=== PATIENT | female | born 1995 | race Caucasian/White ===

== ENCOUNTER 2016-10-15 20:10 | Emergency (ER) | payer BC, OTHER ==
[~2016-10-15] VITALS: Ht 152.4 cm; Wt 77.1 kg
[~2016-10-15 20:10] MED LIST: BIRTHCONTROL PO; CEPH500C PO; CETI10TA17; CYCL5TAB PO; IBP600T1 PO; METR500T PO; MNTL10T; NAPR500T3 PO; NITR-65 PO; OXYC-12 PO; TRAM50TA2 PO
--- NOTE | 2016-10-15 21:27 | ED Integumentary General ---
General Chief Complaint: Allergic Reaction Stated Complaint: RASH Nursing Triage Note: PT TO ED 7 W/ C/O PATCHY AREAS OF IRRITATION ONSET X5 DAYS. REPORTS SHE DOESN' T HAVE TIME TO SEE "A REAL DOCTOR" SO SHE CAME HERE FOR EVAL. DENIES PAIN, DOES C/O ITCHING History of Present Illness Time seen by provider: 21:15 Initial Comments Pruritic rash to arms, stomach, legs and back, unknown cause. Has not been outside much. Has one dog, current on flea medicine and hasn't seen bugs on him. Timing/Duration: week, getting worse Severity: mild Location: torso, extremities Possible Cause: no cause identified Modifying Factors: improves with scratching, improves with other ( hydrocortisone cream) Associated Symptoms: denies symptoms Allergies and Home Medications Allergies Coded Allergies: Penicillins (Unverified Allergy, Mild, 06/28/09) Uncoded Allergies: CODEIN (Allergy, Unknown, 07/07/11) Home Medications Naproxen 500 Mg Tablet, 500 MG PO BID, #20 Prescribed by: KIERRA STEVENSON on 01/23/16 1754 Nitrofurantoin Monohyd/M-Cryst 100 Mg Capsule, 100 MG PO BID, #20 Prescribed by: KIERRA STEVENSON on 01/23/16 1754 Prednisone 20 Mg Tab, 40 MG PO DAILY for 5 Days, #10 Prescribed by: AMEENA VELÁZQUEZ on 10/15/168 Constitutional: no symptoms reported, see HPI Skin: pruritus, rash All Other Systems Reviewed Negative Unless Noted: Yes Past Rzvaotd-Ztryxe-Hdphxm Hx Patient Social History Alcohol Use: Occasionally Uses Recreational Drug Use: No Smoking Status: Never a Smoker Recent Foreign Travel: No Contact w/Someone Who Travel: No Recent Infectious Disease Expo: No Recent Hopitalizations: No Immunizations Up To Date Tetanus Booster (TDap): Less than 5yrs PED Vaccines UTD: Yes Date of Influenza Vaccine: Jan 08, 2012 Seasonal Allergies Seasonal Allergies: No Surgeries HX Surgeries: Yes (RIGHT SHOULDER, RIGHT OVARIAN CYST REMOVAL) Surgeries: Orthopedic Respiratory Hx Respiratory Disorders: No Cardiovascular Hx Cardiac Disorders: No Neurological Hx Neurological Disorders: No Reproductive System Hx Reproductive Disorders: No Female Reproductive Disorders: Ovarian Cyst Genitourinary Hx Genitourinary Disorders: No Gastrointestinal Hx Gastrointestinal Disorders: No Musculoskeletal Hx Musculoskeletal Disorders: No Endocrine Hx Endocrine Disorders: No HEENT HX ENT Disorders: No Cancer Hx Cancer: No Psychosocial Hx Psychiatric Problems: No Integumentary HX Skin/Integumentary Disorder: No Blood Transfusions Hx Blood Disorders: No Adverse Reaction to a Blood Tr: No Reviewed Nursing Assessment Reviewed/Agree w Nursing PMH: Yes Physical Exam Vital Signs Vital Sign - Last 12Hours 10/15/16 20:46 Temp 99.7 Pulse 72 Resp 20 B/P (MAP) 116/66 Pulse Ox 99 O2 Delivery Room Air Capillary Refill : Less Than 3 Seconds General Appearance: WD/WN, no apparent distress HEENT: PERRL/EOMI, normal ENT inspection, TMs normal, pharynx normal Neck: non-tender, full range of motion, normal inspection, No lymphadenopathy ( R), No lymphadenopathy (L) Cardiovascular: normal peripheral pulses, regular rate, rhythm, no murmur Respiratory: chest non-tender, lungs clear Extremities: normal range of motion, non-tender, normal inspection, normal capillary refill Neurologic/Psychiatric: no motor/sensory deficits, alert, normal mood/affect, oriented x 3 Skin: normal color, warm/dry Skin Problem Location: upper extremities, torso, lower extremities Skin Problem Character: macules, papules Lymphatic: no adenopathy Laceration Repair : Suture Size: 4-0 Progress/Results/Core Measures Results/Orders My Orders Orders - AMEENA VELÁZQUEZ Prednisone Tablet (Deltasone Tablet) (10/15/16 21:30) Diphenhydramine Tablet (Benadryl Tablet) (10/15/16 21:30) Medications Given in ED Current Medications Medications Dose Ordered Sig/Seven Route Start Time Stop Time Status Last Admin Dose Admin Diphenhydramine HCl 25 mg ONCE ONCE PO 10/15/16 21:30 10/15/16 21:31 DC 10/15/16 21:29 25 MG Prednisone 20 mg ONCE ONCE PO 10/15/16 21:30 10/15/16 21:31 DC 10/15/16 21:29 20 MG Vital Signs/I&O Vital Sign - Last 12Hours 10/15/16 20:46 Temp 99.7 Pulse 72 Resp 20 B/P (MAP) 116/66 Pulse Ox 99 O2 Delivery Room Air Blood Pressure Mean: 83 Departure Impression Impression: Primary Impression: Contact dermatitis Qualified Codes: L25.9 - Unspecified contact dermatitis, unspecified cause Additional Impression: Insect bite Qualified Codes: W57.XXXA - Bitten or stung by nonvenomous insect and other nonvenomous arthropods, initial encounter Disposition: 01 HOME, SELF-CARE Condition: Stable Departure-Patient Inst. Decision time for Depature: 21:20 Referrals: NO,LOCAL PHYSICIAN (PCP/Family) Primary Care Physician Patient Instructions: Skin Rash (DC) Add. Discharge Instructions: Keep area clean and dry with soap and water. Apply cortisone cream 3-4 times daily. Take Benadryl 25 mg at bedtime. Take prednisone as ordered Return to emergency department for signs of infection to the rash (increased redness, discolored drainage, warmth), fevers, changes in rash or new problems. All discharge instructions reviewed with patient and/or family. Voiced understanding. Scripts Prednisone (Prednisone) 20 Mg Tab 40 MG PO DAILY for 5 Days, #10 TAB Prov: AMEENA VELÁZQUEZ 10/15/16 AMEENA VELÁZQUEZ Oct 15, 2016 21:27
[2016-10-15] MEDS ORDERED: PRD20T PO (21:28)
[2016-10-15] MEDS ORDERED: diphenhydrAMINE 25 MG TAB (BENADRYL) PO ONE (21:30)
[2016-10-15] MEDS ORDERED: predniSONE 20 MG TAB PO ONE (21:30)
[2016-10-15 21:31] VITALS: BP 0/0
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
== END 2016-10-15 21:31 | disposition home or self-care (01) ==
LOC: EDUNIT# 20:10 → ER 20:11
DX: S40.861A Insect bite (nonvenomous) of right upper arm, initial encounter (principal); S40.862A Insect bite (nonvenomous) of left upper arm, initial encounter; S80.861A Insect bite (nonvenomous), right lower leg, initial encounter; S80.862A Insect bite (nonvenomous), left lower leg, initial encounter; S30.861A Insect bite (nonvenomous) of abdominal wall, initial encounter; S20.469A Insect bite (nonvenomous) of unspecified back wall of thorax, initial encounter; L25.9 Unspecified contact dermatitis, unspecified cause; Z87.42 Personal history of other diseases of the female genital tract; W57.XXXA Bitten or stung by nonvenomous insect and other nonvenomous arthropods, initial encounter
CPT/HCPCS: 99283

== ENCOUNTER 2017-07-30 21:31 | Emergency (ER) | payer BC, OTHER ==
[~2017-07-30] VITALS: Ht 152.4 cm; Wt 79.4 kg
[~2017-07-30 21:31] MED LIST changes: +NAPR-915 PO; -NAPR500T3 PO; +PRD20T PO
--- OUTSIDE RECORDS SUMMARY | 2017-07-30 21:36 | XMS REPORT ---
Author Author GUS SHETH [facility] Address [address] [place] [address] Care Team Providers Care Shoe Repair Cobbler Name Role Phone GUS SHETH Unavailable PROBLEMS Unknown Problems ALLERGIES Substance Reaction Event Type Date Status Penicillin V Potassium Unknown Drug Allergy Apr, Active Codeine Phosphate Unknown Drug Allergy Apr, Active SOCIAL HISTORY No smoking Hx information available PLAN OF CARE VITAL SIGNS Height 65.0 in 2016-04-23 Weight 190.6 lbs 2016-04-23 Temperature 98.4 degrees Fahrenheit 2016-04-23 Heart Rate 72 bpm 2016-04-23 Respiratory Rate 20 2016-04-23 BMI 31.71 kg/m2 2016-04-23 Blood pressure systolic 111 mmHg 2016-04-23 Blood pressure diastolic 77 mmHg 2016-04-23 MEDICATIONS Medication Instructions Dosage Frequency Start Date End Date Duration Status Tramadol HCl 50 mg Orally every 4 hrs 1 tablet as needed 4h Apr, Active Bactrim DS 800-160 MG Orally Twice a day 1 tablet 12h Apr,Apr 10 day(s) Active RESULTS No Results PROCEDURES Procedure Date Ordered Related Diagnosis Body Site NAIL REMOVAL PERMANENT (PARTIAL OR COMPLETE) 2016-04-23 N/A REMOVAL OF NAIL BED Apr 23, 2016 Office Visit, Est Pt., Level 2 Apr 23, 2016 IMMUNIZATIONS No Known Immunizations
--- OUTSIDE RECORDS SUMMARY | 2017-07-30 21:36 | XMS REPORT ---
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 Machine Operator Name Role Phone GUS SHETH Unavailable PROBLEMS Unknown Problems ALLERGIES Substance Reaction Event Type Date Status Penicillin V Potassium Unknown Drug Allergy Apr, Active Codeine Phosphate Unknown Drug Allergy Apr, Active SOCIAL HISTORY No smoking Hx information available PLAN OF CARE VITAL SIGNS Weight 191.7 lbs 2016-04-19 Temperature 97.8 degrees Fahrenheit 2016-04-19 Heart Rate 68 bpm 2016-04-19 Respiratory Rate 16 2016-04-19 Blood pressure systolic 120 mmHg 2016-04-19 Blood pressure diastolic 78 mmHg 2016-04-19 MEDICATIONS Medication Instructions Dosage Frequency Start Date End Date Duration Status Bactrim DS 800-160 MG Orally Twice a day 1 tablet 12h Apr,Apr 10 day(s) Active RESULTS No Results PROCEDURES Procedure Date Ordered Related Diagnosis Body Site Office Visit, Est Pt., Level 3 Apr 19, 2016 IMMUNIZATIONS No Known Immunizations
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
[2017-07-30] MEDS ORDERED: KETOROLAC 30 MG/ML VIAL IVP ONE (22:00)
[2017-07-30 22:05] LABS: BASOPHILS % (AUTO) 0 % (0-10); EOSINOPHILS # (AUTO) 0.2 10^3/uL (0.0-0.3); EOSINOPHILS % (AUTO) 2 % (0-10); HEMATOCRIT 37 % (35-52); HEMOGLOBIN 12.9 G/DL (11.5-16.0); LYMPHOCYTES # (AUTO) 2.7 X 10^3 (1.0-4.0); LYMPHOCYTES % (AUTO) 27 % (12-44); MEAN CORPUSCULAR HEMOGLOBIN 31 PG (25-34); MEAN CORPUSCULAR HGB CONC 35 G/DL (32-36); MEAN CORPUSCULAR VOLUME 89 FL (80-99); MEAN PLATELET VOLUME 10.2 FL (7.4-10.4); MONOCYTES # (AUTO) 0.8 X 10^3 (0.0-1.0); MONOCYTES % (AUTO) 8 % (0-12); NEUTROPHILS # (AUTO) 6.3 X 10^3 (1.8-7.8); NEUTROPHILS % (AUTO) 63 % (42-75); PLATELET COUNT 353 10^3/uL (130-400); RED BLOOD COUNT 4.14 10^6/uL (4.35-5.85); RED CELL DISTRIBUTION WIDTH 12.5 % (10.0-14.5)
[2017-07-30 22:09] LABS: BILIRUBIN,URINE NEGATIVE (NEGATIVE); CLARITY,URINE CLEAR; COLOR,URINE YELLOW; GLUCOSE, URINE (UA) NEGATIVE (NEGATIVE); KETONES,URINE NEGATIVE (NEGATIVE); LEUKOCYTE ESTERASE ,URINE 1+ (NEGATIVE); NITRITE,URINE NEGATIVE (NEGATIVE); PH,URINE 6 (5-9); PROTEIN,URINE NEGATIVE (NEGATIVE); UROBILINOGEN,URINE NORMAL (NORMAL)
--- NOTE | 2017-07-30 22:11 | ED Abdominal Pain ---
General Chief Complaint: Abdominal/GI Problems Stated Complaint: BACK PAIN Nursing Triage Note: abdominal pain Sepsis Screen: No Definite Risk Source of Information: Patient Exam Limitations: No Limitations History of Present Illness Date Seen by Provider: Jul 30, 2017 Time Seen by Provider: 22:10 Initial Comments To ER with some right lower abdominal pain and right low back pain. This began this evening after a walk and she thought it may have just muscular. She got in the bathtub which helped temporarily. The pain then recurred and was associated with nausea. No fevers or chills. She does have a remote history of right ovarian cyst measuring 13 cm surgically removed in her teenage years. Timing/Duration: 4-6 Hours Severity/Quality: Moderate Location: RLQ Radiation: No Radiation Activities at Onset: None Allergies and Home Medications Allergies Coded Allergies: Penicillins (Unverified Allergy, Mild, 06/28/09) sulfamethoxazole (Verified Allergy, Unknown, 07/30/17) trimethoprim (Verified Allergy, Unknown, 07/30/17) Uncoded Allergies: CODEIN (Allergy, Unknown, 07/07/11) Home Medications No Active Prescriptions or Reported Meds Patient Home Medication List Home Medication List Reviewed: Yes Review of Systems Constitutional: see HPI EENTM: No Symptoms Reported Respiratory: No Symptoms Reported Cardiovascular: No Symptoms Reported Gastrointestinal: See HPI, Abdominal Pain, Nausea Genitourinary: No Symptoms Reported Musculoskeletal: no symptoms reported Skin: no symptoms reported Psychiatric/Neurological: No Symptoms Reported Endocrine: No Symptoms Reported Past Vryraqq-Pxknvp-Qxildy Hx Patient Social History Alcohol Use: Occasionally Uses Recreational Drug Use: No Smoking Status: Never a Smoker Recent Foreign Travel: No Contact w/Someone Who Travel: No Recent Infectious Disease Expo: No Recent Hopitalizations: No Immunizations Up To Date Tetanus Booster (TDap): Less than 5yrs PED Vaccines UTD: Yes Date of Influenza Vaccine: Jan 08, 2012 Seasonal Allergies Seasonal Allergies: No Past Medical History Surgeries: Yes (RIGHT SHOULDER, RIGHT OVARIAN CYST REMOVAL) Orthopedic Respiratory: No Cardiac: No Neurological: No : No Last Menstrual Period: Jul 09, 2017 Reproductive Disorders: No Female Reproductive Disorders: Ovarian Cyst Genitourinary: No Gastrointestinal: No Musculoskeletal: No Endocrine: No HEENT: No Cancer: No Psychosocial: No Integumentary: No Blood Disorders: No Adverse Reaction/Blood Tranf: No Physical Exam Vital Signs Vital Signs - First Documented 07/30/17 21:45 Temp 97.7 Pulse 82 Resp 18 B/P (MAP) 144/93 (110) Pulse Ox 97 O2 Delivery Room Air Capillary Refill : Less Than 3 Seconds General Appearance: WD/WN, no apparent distress HEENT: PERRL/EOMI, normal ENT inspection Neck: non-tender, full range of motion Respiratory: no respiratory distress, no accessory muscle use Cardiovascular: regular rate, rhythm, no murmur Gastrointestinal: normal bowel sounds, soft, rebound, tenderness (Right lower quadrant) Extremities: normal range of motion, non-tender Neurologic/Psychiatric: alert, normal mood/affect, oriented x 3 Skin: normal color, warm/dry Procedures/Interventions Suture Size: 4-0 Progress/Results/Core Measures Lab Results Laboratory Tests Test 07/30/17 21:55 07/30/17 22:00 Range/Units White Blood Count 10.0 4.3-11.0 10^3/uL Red Blood Count 4.14 L 4.35-5.85 10^6/uL Hemoglobin 12.9 11.5-16.0 G/DL Hematocrit 37 35-52 % Mean Corpuscular Volume 89 80-99 FL Mean Corpuscular Hemoglobin 31 25-34 PG Mean Corpuscular Hemoglobin Concent 35 32-36 G/DL Red Cell Distribution Width 12.5 10.0-14.5 % Platelet Count 353 130-400 10^3/uL Mean Platelet Volume 10.2 7.4-10.4 FL Neutrophils (%) (Auto) 63 42-75 % Lymphocytes (%) (Auto) 27 12-44 % Monocytes (%) (Auto) 8 0-12 % Eosinophils (%) (Auto) 2 0-10 % Basophils (%) (Auto) 0 0-10 % Neutrophils # (Auto) 6.3 1.8-7.8 X 10^3 Lymphocytes # (Auto) 2.7 1.0-4.0 X 10^3 Monocytes # (Auto) 0.8 0.0-1.0 X 10^3 Eosinophils # (Auto) 0.2 0.0-0.3 10^3/uL Basophils # (Auto) 0.0 0.0-0.1 10^3/uL Sodium Level 140 135-145 MMOL/L Potassium Level 3.9 3.6-5.0 MMOL/L Chloride Level 108 H 98-107 MMOL/L Carbon Dioxide Level 24 21-32 MMOL/L Anion Gap 8 5-14 MMOL/L Blood Urea Nitrogen 11 7-18 MG/DL Creatinine 0.94 0.60-1.30 MG/DL Estimat Glomerular Filtration Rate > 60 BUN/Creatinine Ratio 12 Glucose Level 101 70-105 MG/DL Calcium Level 9.3 8.5-10.1 MG/DL Total Bilirubin 0.4 0.1-1.0 MG/DL Aspartate Amino Transf (AST/SGOT) 17 5-34 U/L Alanine Aminotransferase (ALT/SGPT) 16 0-55 U/L Alkaline Phosphatase 56 40-136 U/L Total Protein 7.2 6.4-8.2 GM/DL Albumin 4.1 3.2-4.5 GM/DL Urine Color YELLOW Urine Clarity CLEAR Urine pH 6 5-9 Urine Specific [place] 1.025 H 1.016-1.022 Urine Protein NEGATIVE NEGATIVE Urine Glucose (UA) NEGATIVE NEGATIVE Urine Ketones NEGATIVE NEGATIVE Urine Nitrite NEGATIVE NEGATIVE Urine Bilirubin NEGATIVE NEGATIVE Urine Urobilinogen NORMAL NORMAL MG/DL Urine Leukocyte Esterase 1+ H NEGATIVE Urine RBC (Auto) NEGATIVE NEGATIVE Urine RBC NONE /HPF Urine WBC 0-2 /HPF Urine Squamous Epithelial Cells 2-5 /HPF Urine Crystals NONE /LPF Urine Bacteria NONE /HPF Urine Casts NONE /LPF Urine Mucus NEGATIVE /LPF Urine Culture Indicated NO My Orders Orders - DALY GARCIA APRN Urine Bedside (07/30/17 21:58) Saline Lock/Iv-Start (07/30/17 21:58) Cbc With Automated Diff (07/30/17 21:58) Comprehensive Metabolic Panel (07/30/17 21:58) Ct Abd/Pelv W (Appendicitis) (07/30/17 21:58) Ketorolac Injection (Toradol Injection) (07/30/17 22:00) Iohexol Injection (Omnipaque 350 Mg/Ml 1 (07/30/17 22:30) Ns (Ivpb) (Sodium Chloride 0.9%) (07/30/17 22:30) Rx-Tramadol Hcl (Rx-Ultram) (07/30/17 22:26) Iv Push Electronic Equipment Repairer Ed (07/30/17 ) Medications Given in ED Vital Signs/I&O 07/30/17 07/30/17 07/30/17 21:45 22:10 22:40 Temp 97.7 97.7 98.6 Pulse 82 78 Resp 18 18 B/P (MAP) 144/93 (110) 139/86 (110) Pulse Ox 97 99 O2 Delivery Room Air Room Air Blood Pressure Mean: 110 Urine -Bedside: Negative Departure Impression Primary Impression: Ovarian cyst Disposition: HOME, SELF-CARE Condition: Stable Departure-Patient Inst. Decision time for Depature: 22:25 Referrals: NO,LOCAL PHYSICIAN (PCP/Family) Primary Care Physician Patient Instructions: Ovarian Cyst (DC) Add. Discharge Instructions: 1. Tylenol and Motrin for pain control. Use the stronger prescription pain medication as needed. Follow-up with your regular physician or [employer] [facility] later next week. Return to ER for intolerable pain, fevers, chills. All discharge instructions reviewed with patient and/or family. Voiced understanding. Scripts No Active Prescriptions or Reported Meds Work/School Note: Work Release Form Date Seen in the Emergency Department: Jul 30, 2017 Return to Work: Aug 01, 2017 DALY GARCIA APRN Jul 30, 2017 22:11
[2017-07-30 22:16] LABS: WBC,URINE 0-2 /HPF
[2017-07-30 22:17] LABS: ALANINE AMINOTRANSFERASE 16 U/L (0-55); ALBUMIN 4.1 GM/DL (3.2-4.5); ALKALINE PHOSPHATASE 56 U/L (40-136); BILIRUBIN,TOTAL 0.4 MG/DL (0.1-1.0); BUN/CREATININE RATIO 12; CALCIUM 9.3 MG/DL (8.5-10.1); CARBON DIOXIDE 24 MMOL/L (21-32); CHLORIDE 108 MMOL/L (98-107); CREATININE SERUM 0.94 MG/DL (0.60-1.30); GFR ESTIMATED > 60; GLUCOSE 101 MG/DL (70-105); POTASSIUM 3.9 MMOL/L (3.6-5.0); SODIUM 140 MMOL/L (135-145); TOTAL PROTEIN 7.2 GM/DL (6.4-8.2)
[2017-07-30] MEDS ORDERED: RX-TRAMADOL 50 MG (ULTRAM) TAB PPK#4 PO STA (22:26)
[2017-07-30] MEDS ORDERED: IOHEXOL 350 MG/ML 100 ML (OMNIPAQUE 350) VIAL IV ONE (22:30)
[2017-07-30] MEDS ORDERED: NS 250 ML (IVPB) BAG IV ONE (22:30)
[2017-07-30 22:40] VITALS: BP 139/86
--- NOTE | 2017-07-31 07:20 | Diagnostic Imaging Report ---
PROCEDURE: CT abdomen and pelvis with contrast, rule out appendicitis. TECHNIQUE: Multiple contiguous axial images were obtained through the abdomen and pelvis after the administration of intravenous contrast. INDICATION: Right lower quadrant pain. COMPARISON: 07/07/2011 FINDINGS: Lower chest: The lung bases are clear. No pericardial or pleural effusion. Peritoneum: No free intraperitoneal air or fluid. Liver and biliary system: The liver is normal. Gallbladder is contracted without radiopaque gallstones. No biliary duct dilatation. Spleen and Pancreas: Spleen is normal. The pancreas enhances normally without mass lesion or peripancreatic inflammatory changes. Adrenals: Normal. tract: The kidneys enhance normally without suspicious mass or obstruction. Urinary bladder is distended without wall thickening. Uterus is normal in appearance. Ovaries are also physiologic in appearance. Within the right ovary, there is a 2.6 x 1.8 cm homogeneous hypodensity that likely represents a follicle. GI tract: Stomach is partially seen with fluid and food debris and there is no wall thickening. No bowel obstruction. No pericolonic inflammatory changes. Normal appendix which is located in the right upper quadrant in a retrocecal position. Vasculature and Lymph nodes: Normal caliber aorta. No abdominal or pelvic lymphadenopathy. Musculoskeletal: No concerning osseous lesion. IMPRESSION: 1. No acute inflammatory or obstructive process in the abdomen or pelvis. Normal appendix. 2. Physiologic appearance of the ovaries with a 2.6 cm right ovarian follicle. 3. Findings are in agreement with the preliminary report. Dictated by: Dictated on workstation # [id number]
== END 2017-07-30 22:40 | disposition home or self-care (01) ==
LOC: EDUNIT# 21:31 → ER 21:33
DX: N83.202 Unspecified ovarian cyst, left side (principal); Z88.0 Allergy status to penicillin; Z88.2 Allergy status to sulfonamides; Z88.5 Allergy status to narcotic agent; Z88.8 Allergy status to other drugs, medicaments and biological substances
CPT/HCPCS: 36415; 74177; 80053; 81000; 84703; 85025; 96374

== ENCOUNTER 2018-05-05 20:42 | Emergency (ER) | payer SELFPAY ==
[~2018-05-05] VITALS: Ht 152.4 cm; Wt 83.9 kg
--- OUTSIDE RECORDS SUMMARY | 2018-05-05 20:47 | XMS REPORT | Continuity of Care Document ---
Author Author [facility] Address Unknown Phone Unavailable Allergies Active Description Code Type Severity Reaction Onset Reported/Identified Relationship to Patient Clinical Status Yes Penicillins Drug Allergy N/A N/A 11/18/2008 Yes sesonal allergies OA N/A N/A 11/18/2008 Yes Penicillins [id number] Drug Allergy Mild N/A 06/28/2009 Yes CODEIN CODEIN Unknown N/A 07/07/2011 Yes codeine Drug Allergy N/A N/A 08/01/2014 Yes sulfamethoxazole [id number] Drug Allergy Unknown N/A 07/30/2017 Yes trimethoprim [id number] Drug Allergy Unknown N/A 07/30/2017 Medications There is no data. Problems Date [...] 729.5 PAIN IN LIMB 11/12/2015 JAMEY LEE SPICE ROOM WORKER Ot 719.41 JOINT PAIN-SHLDER 11/12/2015 HARLEEN FRANKLIN [...] 729.5 PAIN IN LIMB 11/12/2015 JAMEY LEE SPICE ROOM WORKER Ot 719.41 JOINT PAIN-SHLDER 11/14/2015 HARLEEN FRANKLIN [...] 729.5 PAIN IN LIMB 01/23/2016 JAMEY LEE [employer] ROOM WORKER Ot 719.41 JOINT PAIN-SHLDER 01/23/2016 Ot 724.5 BACKACHE NOS 01/23/2016 Ot 959.19 OTH INJURY OF OTHER SITES OF TRUNK 01/23/2016 Ot E000.8 OTHER EXTERNAL CAUSE STATUS 01/23/2016 Ot E002.5 ACTIVITIES INVG ROWING/CANOEING/KAYAKING 01/23/2016 Ot E849.[address] NEC 01/23/2016 Ot E928.9 ACCIDENT NOS 01/23/2016 Ot 729.5 PAIN IN LIMB 01/23/2016 JAMEY LEE [employer] RO[employer] WORKER Ot 719.41 JOINT PAIN-SHLDER 01/23/2016 KIERRA STEVENSON [...] 729.5 PAIN IN LIMB 01/23/2016 JAMEY LEE [employer] ROOM WORKER Ot 719.41 JOINT PAIN-SHLDER 01/29/2016 KIERRA STEVENSON DO Ot N39.0 URINARY TRACT INFECTION, SITE NOT SPECIF 01/29/2016 KIERRA STEVENSON DO Ot R10.31 RIGHT LOWER QUADRANT PAIN 10/15/2016 MELANIA, AMEENA DIRECTOR OF ASSESSMENT Ot L25.9 UNSPECIFIED CONTACT DERMATITIS, UNSPECIF 10/15/2016 MELANIA, AMEENA DIRECTOR OF ASSESSMENT Ot R21 RASH AND OTHER NONSPECIFIC SKIN ERUPTION 10/15/2016 MELANIA, AMEENA DIRECTOR OF ASSESSMENT Ot S20.469A INSECT BITE (NONVENOMOUS) OF UNSP BACK W 10/15/2016 MELANIA, AMEENA DIRECTOR OF ASSESSMENT Ot S30.861A INSECT BITE (NONVENOMOUS) OF ABDOMINAL W 10/15/2016 MELANIA, AMEENA DIRECTOR OF ASSESSMENT Ot S40.861A INSECT BITE (NONVENOMOUS) OF RIGHT UPPER 10/15/2016 MELANIA, AMEENA DIRECTOR OF ASSESSMENT Ot S40.862A INSECT BITE (NONVENOMOUS) OF LEFT UPPER 10/15/2016 MELANIA, AMEENA DIRECTOR OF ASSESSMENT Ot S80.861A INSECT BITE (NONVENOMOUS), RIGHT LOWER L 10/15/2016 MELANIA, AMEENA DIRECTOR OF ASSESSMENT Ot S80.862A INSECT BITE (NONVENOMOUS), LEFT LOWER LE 10/15/2016 MELANIA, AMEENA DIRECTOR OF ASSESSMENT Ot W57.XXXA BIT/STUNG BY NONVENOM INSECT OTH NONVE 10/15/2016 MELANIA, AMEENA DIRECTOR OF ASSESSMENT Ot Z87.42 PERSONAL HISTORY OF OTH DISEASES OF THE 10/15/2016 Ot 729.5 PAIN IN LIMB 10/15/2016 JAMEY LEE [employer] RO[employer] WORKER Ot 719.41 JOINT PAIN-SHLDER 10/17/2016 Ot 729.5 PAIN IN LIMB 10/17/2016 JAMEY LEE [employer] ROOM WORKER Ot 719.41 JOINT PAIN-SHLDER 11/06/2016 Ot 729.5 PAIN IN LIMB 11/06/2016 JAMEY LEE SP[employer] ROOM WORKER Ot 719.41 JOINT PAIN-SHLDER 07/30/2017 DALY GARCIA SPICE ROOM WORKER Ot N83.202 UNSPECIFIED OVARIAN CYST, LEFT SIDE 07/30/2017 DALY GARCIA APRN Ot R10.31 RIGHT LOWER QUADRANT PAIN 07/30/2017 DALY GARCIA SPICE ROOM WORKER Ot Z88.0 ALLERGY STATUS TO PENICILLIN 07/30/2017 DALY GARCIA SPICE ROOM WORKER Ot Z88.2 ALLERGY STATUS TO SULFONAMIDES STATUS 07/30/2017 DALY GARCIA SPICE ROOM WORKER Ot Z88.5 ALLERGY STATUS TO NARCOTIC AGENT STATUS 07/30/2017 DALY GARCIA APRN Ot Z88.8 ALLERGY STATUS TO OTH DRUG/MEDS/BIOL SUB 07/31/2017 Ot 729.5 PAIN IN LIMB 07/31/2017 JAMEY LEE SP[employer] ROOM WORKER Ot 719.41 JOINT PAIN-SHLDER 08/01/2017 DALY GARCIA APRN Ot N83.202 UNSPECIFIED OVARIAN CYST, LEFT SIDE 08/01/2017 DALY GARCIA APRN Ot R10.31 RIGHT LOWER QUADRANT PAIN 08/01/2017 DALY GARCIA APRN Ot Z88.0 ALLERGY STATUS TO PENICILLIN 08/01/2017 DALY GARCIA APRN Ot Z88.2 ALLERGY STATUS TO SULFONAMIDES STATUS 08/01/2017 DALY GARCIA APRN Ot Z88.5 ALLERGY STATUS TO NARCOTIC AGENT STATUS 08/01/2017 DALY GARCIA APRN Ot Z88.8 ALLERGY STATUS TO OTH DRUG/MEDS/BIOL SUB Procedures There is no data. Results Test [...] urinalysis with reflex to culture NO NRG Complete blood count (CBC) with automated white blood cell (WBC) differential - 07/30/17 21:55 Blood leukocytes automated count (number/volume) 10.0 10*3/uL 4.3-11.0 Blood erythrocytes automated count (number/volume) 4.14 10*6/uL 4.35-5.85 Venous blood hemoglobin measurement (mass/volume) 12.9 g/dL 11.5-16.0 Blood hematocrit (volume fraction) 37 % 35-52 Automated erythrocyte mean corpuscular volume 89 [foz_us] 80-99 Automated erythrocyte mean corpuscular hemoglobin (mass per erythrocyte) 31 pg 25-34 Automated erythrocyte mean corpuscular hemoglobin concentration measurement ( mass/volume) 35 g/dL 32-36 Automated erythrocyte distribution width ratio 12.5 % 10.0-14.5 Automated blood platelet count (count/volume) 353 10*3/uL 130-400 Automated blood platelet mean volume measurement 10.2 [foz_us] 7.4-10.4 Automated blood neutrophils/100 leukocytes 63 % 42-75 Automated blood lymphocytes/100 leukocytes 27 % 12-44 Blood monocytes/100 leukocytes 8 % 0-12 Automated blood eosinophils/100 leukocytes 2 % 0-10 Automated blood basophils/100 leukocytes 0 % 0-10 Blood neutrophils automated count (number/volume) 6.3 10*3 1.8-7.8 Blood lymphocytes automated count (number/volume) 2.7 10*3 1.0-4.0 Blood monocytes automated count (number/volume) 0.8 10*3 0.0-1.0 Automated eosinophil count 0.2 10*3/uL 0.0-0.3 Automated blood basophil count (count/volume) 0.0 10*3/uL 0.0-0.1 Comprehensive metabolic panel - 07/30/17 21:55 Serum or plasma sodium measurement (moles/volume) 140 mmol/L 135-145 Serum or plasma potassium measurement (moles/volume) 3.9 mmol/L 3.6-5.0 Serum or plasma chloride measurement (moles/volume) 108 mmol/L 98-107 Carbon dioxide 24 mmol/L 21-32 Serum or plasma anion gap determination (moles/volume) 8 mmol/L 5-14 Serum or plasma urea nitrogen measurement (mass/volume) 11 mg/dL 7-18 Serum or plasma creatinine measurement (mass/volume) 0.94 mg/dL 0.60-1.30 Serum or plasma urea nitrogen/creatinine mass ratio 12 NRG Serum or plasma creatinine measurement with calculation of estimated glomerular filtration rate > NRG Serum or plasma glucose measurement (mass/volume) 101 mg/dL 70-105 Serum or plasma calcium measurement (mass/volume) 9.3 mg/dL 8.5-10.1 Serum or plasma total bilirubin measurement (mass/volume) 0.4 mg/dL 0.1-1.0 Serum or plasma alkaline phosphatase measurement (enzymatic activity/volume) 56 U/L 40-136 Serum or plasma aspartate aminotransferase measurement (enzymatic activity/ volume) 17 U/L 5-34 Serum or plasma alanine aminotransferase measurement (enzymatic activity/volume ) 16 U/L 0-55 Serum or plasma protein measurement (mass/volume) 7.2 g/dL 6.4-8.2 Serum or plasma albumin measurement (mass/volume) 4.1 g/dL 3.2-4.5 Complete urinalysis with reflex to culture - 07/30/17 22:00 Urine color determination YELLOW NRG Urine clarity determination CLEAR NRG Urine pH measurement by test strip 6 5-9 Specific gravity of urine by test strip 1.025 1.016- 1.022 Urine protein assay by test [...] urine sediment by light microscopy NONE NRG Squamous epithelial cells detection in urine sediment by light microscopy 2-5 NRG Crystals detection in urine sediment by light microscopy NONE NRG Casts detection in urine sediment by light microscopy NONE NRG Mucus detection in urine sediment by light microscopy NEGATIVE NRG Complete urinalysis with reflex to culture NO NRG Encounters ACCT No. Visit Date/Time Discharge Status Pt. Type Provider Facility Loc./Unit Complaint [id number] 08/01/2014 18:04:00 08/01/2014 23:59:59 CLS Outpatient GINO PEPE APRN [id number] 07/30/2017 21:33:00 07/30/2017 22:40:00 DIS Emergency DALY GARCIA [employer] RO[employer] WORKER [facility] ER BACK PAIN [id number] 10/15/2016 20:11:00 10/15/2016 21:31:00 DIS Emergency AMEENA VELÁZQUEZ [facility] ER RASH [id number] 01/23/2016 15:32:00 01/23/2016 18:01:00 DIS Emergency ELVA DOKIERRA K [facility] ER L LOWER SIDE ABD PAIN [id number] 11/12/2015 21:00:00 11/12/2015 23:05:00 DIS Emergency HARLEEN FRANKLIN [facility] ER FALL/LAC ON LT SIDE OF FOREHEAD [id number] 04/20/2013 12:11:00 04/20/2013 23:59:59 CLS Outpatient JAMEY LEE [employer] RO[employer] WORKER [facility] RAD R SHOULDER PAIN [id number] 09/25/2012 15:15:00 09/25/2012 23:59:59 CLS Outpatient [id number] 04/29/2012 17:28:00 Document Registration [id number] 01/08/2012 09:56:00 Document Registration [id number] 09/20/2011 13:27:00 Document Registration [id number] 07/08/2011 16:35:00 Document Registration [id number] 07/07/2011 00:48:00 Document Registration [id number] 10/26/2010 12:27:00 Document Registration
[2018-05-05 22:04] LABS: BASOPHILS % (AUTO) 0 % (0-10); EOSINOPHILS # (AUTO) 0.2 10^3/uL (0.0-0.3); EOSINOPHILS % (AUTO) 2 % (0-10); HEMATOCRIT 38 % (35-52); LYMPHOCYTES # (AUTO) 2.7 X 10^3 (1.0-4.0); LYMPHOCYTES % (AUTO) 24 % (12-44); MEAN CORPUSCULAR HEMOGLOBIN 31 PG (25-34); MEAN CORPUSCULAR HGB CONC 34 G/DL (32-36); MEAN CORPUSCULAR VOLUME 90 FL (80-99); MEAN PLATELET VOLUME 10.6 FL (7.4-10.4); MONOCYTES # (AUTO) 0.9 X 10^3 (0.0-1.0); MONOCYTES % (AUTO) 8 % (0-12); NEUTROPHILS # (AUTO) 7.2 X 10^3 (1.8-7.8); NEUTROPHILS % (AUTO) 65 % (42-75); PLATELET COUNT 317 10^3/uL (130-400); RED CELL DISTRIBUTION WIDTH 12.7 % (10.0-14.5); WHITE BLOOD COUNT 11.1 10^3/uL (4.3-11.0)
[2018-05-05] MEDS ORDERED: IBUPROFEN 800 MG (MOTRIN) TAB PO STA (22:09)
--- NOTE | 2018-05-05 22:09 | ED General ---
General Stated Complaint: CHEST PAIN, BACK PAIN Source of Information: Patient Exam Limitations: No Limitations History of Present Illness Date Seen by Provider: May 05, 2018 Time Seen by Provider: 21:49 Initial Comments Here with complaint of intermittent chest pain since yesterday that's on the right side central and radiating to her back. She describes this as sharp and intermittent. Also complains of sore throat without cough and no runny nose. Unsure she's had fever. Denies nausea or vomiting. Denies weakness, breathing problems or dizziness. States she overall doesn't feel well complains of body aches. Timing/Duration: 24 Hours Severity: Moderate Modifying Factors: improves with Rest Associated Systoms: Chest Pain; No Cough, No Fever/Chills, No Headaches; Malaise; No Nausea/Vomiting, No Shortness of Air, No Weakness Allergies and Home Medications Allergies Coded Allergies: Penicillins (Unverified Allergy, Mild, 06/28/09) sulfamethoxazole (Verified Allergy, Unknown, 07/30/17) trimethoprim (Verified Allergy, Unknown, 07/30/17) Uncoded Allergies: CODEIN (Allergy, Unknown, 07/07/11) Home Medications No Active Prescriptions or Reported Meds Patient Home Medication List Home Medication List Reviewed: Yes Review of Systems Review of Systems Constitutional: see HPI; No chills, No fever EENTM: throat pain; No nose congestion Respiratory: No cough, No short of breath Cardiovascular: see HPI, chest pain; No edema Gastrointestinal: No abdominal pain, No nausea, No vomiting Genitourinary: no symptoms reported Musculoskeletal: joint pain, muscle pain Skin: no symptoms reported All Other Systems Reviewed Negative Unless Noted: Yes Past Pbtynhs-Bvzjbu-Kstmyd Hx Past Med/Social Hx: Reviewed Nursing Past Med/Soc Hx Patient Social History Alcohol Use: Denies Use Recreational Drug Use: No Smoking Status: Never a Smoker Recent Foreign Travel: No Contact w/Someone Who Travel: No Recent Hopitalizations: No Immunizations Up To Date Tetanus Booster (TDap): Less than 5yrs PED Vaccines UTD: Yes Date of Influenza Vaccine: Jan 08, 2012 Seasonal Allergies Seasonal Allergies: No Past Medical History Surgeries: Yes (RIGHT SHOULDER, RIGHT OVARIAN CYST REMOVAL) Orthopedic Respiratory: No Cardiac: No Neurological: No Reproductive Disorders: No Female Reproductive Disorders: Ovarian Cyst Genitourinary: No Gastrointestinal: No Musculoskeletal: No Endocrine: No HEENT: No Cancer: No Psychosocial: No Integumentary: No Blood Disorders: No Adverse Reaction/Blood Tranf: No Family Medical History Reviewed Nursing Family Hx No Pertinent Family Hx Physical Exam Vital Signs Vital Signs - First Documented Capillary Refill : Height, Weight, BMI Height: 5'0" Weight: 175lbs. 0oz. 79.879051pk; BMI Method:Stated General Appearance: No Apparent Distress, WD/WN HEENT: PERRL/EOMI, Pharyngeal Erythema; No Tonsillar Exudate Neck: Non Tender, Supple Respiratory: Lungs Clear, Normal Breath Sounds Cardiovascular: Regular Rate, Rhythm, No Murmur Gastrointestinal: Non Tender, Soft Back: Normal Inspection, No CVA Tenderness, No Vertebral Tenderness Extremity: Normal Inspection, Normal Range of Motion, Non Tender, No Calf Tenderness Neurologic/Psychiatric: Alert, Oriented x3 Skin: Normal Color, Warm/Dry Procedures/Interventions Suture Size: 4-0 Progress/Results/Core Measures Suspected Sepsis SIRS Temperature: Pulse: Respiratory Rate: Laboratory Tests 05/05/18 21:35: White Blood Count 11.1H Blood Pressure / Mean: Laboratory Tests 05/05/18 21:35: Creatinine 0.76, Platelet Count 317, Total Bilirubin 0.4 Results/Orders Lab Results Laboratory Tests Test 05/05/18 21:35 Range/Units White Blood Count 11.1 H 4.3-11.0 10^3/uL Red Blood Count 4.25 L 4.35-5.85 10^6/uL Hemoglobin 13.0 11.5-16.0 G/DL Hematocrit 38 35-52 % Mean Corpuscular Volume 90 80-99 FL Mean Corpuscular Hemoglobin 31 25-34 PG Mean Corpuscular Hemoglobin Concent 34 32-36 G/DL Red Cell Distribution Width 12.7 10.0-14.5 % Platelet Count 317 130-400 10^3/uL Mean Platelet Volume 10.6 H 7.4-10.4 FL Neutrophils (%) (Auto) 65 42-75 % Lymphocytes (%) (Auto) 24 12-44 % Monocytes (%) (Auto) 8 0-12 % Eosinophils (%) (Auto) 2 0-10 % Basophils (%) (Auto) 0 0-10 % Neutrophils # (Auto) 7.2 1.8-7.8 X 10^3 Lymphocytes # (Auto) 2.7 1.0-4.0 X 10^3 Monocytes # (Auto) 0.9 0.0-1.0 X 10^3 Eosinophils # (Auto) 0.2 0.0-0.3 10^3/uL Basophils # (Auto) 0.0 0.0-0.1 10^3/uL D-Dimer 0.35 0.00-0.49 UG/ML Sodium Level 139 135-145 MMOL/L Potassium Level 3.9 3.6-5.0 MMOL/L Chloride Level 107 98-107 MMOL/L Carbon Dioxide Level 21 21-32 MMOL/L Anion Gap 11 5-14 MMOL/L Blood Urea Nitrogen 9 7-18 MG/DL Creatinine 0.76 0.60-1.30 MG/DL Estimat Glomerular Filtration Rate > 60 BUN/Creatinine Ratio 12 Glucose Level 94 70-105 MG/DL Calcium Level 9.2 8.5-10.1 MG/DL Corrected Calcium 9.0 8.5-10.1 MG/DL Total Bilirubin 0.4 0.1-1.0 MG/DL Aspartate Amino Transf (AST/SGOT) 21 5-34 U/L Alanine Aminotransferase (ALT/SGPT) 17 0-55 U/L Alkaline Phosphatase 66 40-136 U/L Troponin I < 0.028 <0.028 NG/ML Total Protein 7.3 6.4-8.2 GM/DL Albumin 4.2 3.2-4.5 GM/DL Serum Test, Qualitative NEGATIVE NEGATIVE Group A Streptococcus Screen NEGATIVE NEGATIVE Micro Results Microbiology 05/05/18 Influenza Types A,B Antigen ([facility]ARCISO) - Final, Complete My Orders Orders - NIKOS QUIROGA MD Chest Pa/Lat (2 View) (05/05/18 21:55) Cbc With Automated Diff (05/05/18 21:55) Comprehensive Metabolic Panel (05/05/18 21:55) Fibrin Degradation Products (05/05/18 21:55) Rapid Strep A Screen (05/05/18 21:55) Troponin I (05/05/18 21:55) Influenza A And B Antigens (05/05/18 21:55) Saline Lock/Iv-Start (05/05/18 21:55) Ekg Tracing (05/05/18 21:55) Ibuprofen Tablet (Motrin Tablet) (05/05/18 22:09) Hcg,Qualitative Serum (05/05/18 22:12) Vital Signs/I&O 05/05/18 05/05/18 21:20 21:20 Temp 98.6 Pulse 77 Resp 16 B/P (MAP) 111/65 (80) Pulse Ox 100 O2 Delivery Room Air Room Air Capillary Refill : Progress Note : Progress Note Seen and evaluated. Chest x-ray, EKG, labs, influenza screen and rapid strep ordered. Monitor patient. 2244: No acute findings. Did discuss outpatient therapy for upper respiratory infection. Discharge home with return precautions. Patient verbalized understanding instructions and agreement with plan. ECG Initial ECG Impression Date: May 05, 2018 Initial ECG Impression Time: 21:22 Initial ECG Rate: 76 Initial ECG Rhythm: Normal Sinus Initial ECG Impression: Normal Comment Sinus rhythm with normal axis. No evidence of ST elevation [place]. No previous available for comparison. Interpreted by me. Departure Impression Primary Impression: Upper respiratory infection, viral Disposition: 01 HOME, SELF-CARE Condition: Stable Departure-Patient Inst. Decision time for Depature: 22:47 Referrals: NO,LOCAL PHYSICIAN (PCP/Family) Primary Care Physician Patient Instructions: Viral Upper Respiratory Infection, Adult (DC), Chest Pain (DC) Add. Discharge Instructions: Drink plenty of fluids. You may take ibuprofen 800 mg every 8 hours as needed for pain. You may take Tylenol/acetaminophen 1000 mg every 8 hours as needed for pain. You may take [id number] cold medicine but make sure that you' re not doubling up on the acetaminophen or ibuprofen in the cold medicine. Get some rest. Return for worse pain, fever, vomiting, weakness, breathing problems or other concerns as needed. Scripts No Active Prescriptions or Reported Meds Work/School Note: Work Release Form Date Seen in the Emergency Department: May 05, 2018 Return to Work: May 07, 2018 Restrictions: No Restrictions NIKOS QUIROGA MD May 05, 2018 22:09
[2018-05-05 22:17] LABS: ALANINE AMINOTRANSFERASE 17 U/L (0-55); ALBUMIN 4.2 GM/DL (3.2-4.5); ALKALINE PHOSPHATASE 66 U/L (40-136); BILIRUBIN,TOTAL 0.4 MG/DL (0.1-1.0); BUN/CREATININE RATIO 12; CALCIUM 9.2 MG/DL (8.5-10.1); CARBON DIOXIDE 21 MMOL/L (21-32); CHLORIDE 107 MMOL/L (98-107); CREATININE SERUM 0.76 MG/DL (0.60-1.30); GFR ESTIMATED > 60; GLUCOSE 94 MG/DL (70-105); POTASSIUM 3.9 MMOL/L (3.6-5.0); SODIUM 139 MMOL/L (135-145); TOTAL PROTEIN 7.3 GM/DL (6.4-8.2)
[2018-05-05 23:00] VITALS: BP 97/57
--- NOTE | 2018-05-06 08:19 | Diagnostic Imaging Report ---
INDICATION: Cough and back pain. Comparison is made with prior examination from 11/12/2015 PA and lateral views were obtained. FINDINGS: The heart size, mediastinal configuration, and pulmonary vascularity are within normal limits. There is no pleural effusion, pneumothorax, or pneumonia. The osseous structures are unremarkable. IMPRESSION: No acute cardiopulmonary abnormality. Dictated by: Dictated on workstation # [id number]
== END 2018-05-05 23:00 | disposition home or self-care (01) ==
LOC: EDUNIT# 20:42 → ER 20:43
DX: J06.9 Acute upper respiratory infection, unspecified (principal); Z88.0 Allergy status to penicillin; Z88.2 Allergy status to sulfonamides; Z88.8 Allergy status to other drugs, medicaments and biological substances; Z88.5 Allergy status to narcotic agent; Z98.890 Other specified postprocedural states; Z87.448 Personal history of other diseases of urinary system
CPT/HCPCS: 36415; 71046; 80053; 84484; 84703; 85025; 85379; 87430; 87804; 93005